=== PATIENT | female | born 1995 | race Two or more races ===

== ENCOUNTER 2022-07-11 04:14 | Emergency (ER) | payer OTHER ==
[~2022-07-11] VITALS: Ht 170.2 cm; Wt 66.7 kg
[2022-07-11] MEDS ORDERED: CELEBREX100 MG PO (05:39)
[2022-07-11] MEDS ORDERED: METAXALONE800 MG PO (05:39)
== END 2022-07-11 05:44 | disposition home or self-care (01) ==
LOC: ER 04:14
DX: R20.0 Anesthesia of skin (principal); M62.830 Muscle spasm of back; Z91.013 Allergy to seafood; Z91.018 Allergy to other foods

== ENCOUNTER 2023-11-23 09:53 | Emergency (ER) | payer OTHER ==
[~2023-11-23] VITALS: Ht 170.2 cm; Wt 64.9 kg
[~2023-11-23 09:53] MED LIST: CELEBREX100 MG PO; METAXALONE800 MG PO
[2023-11-23] MEDS ORDERED: LORATADINE10 MG PO (10:36)
[2023-11-23] MEDS ORDERED: BENZONATATE100 MG PO (10:36)
[2023-11-23] MEDS ORDERED: GUAIFEN/DEXTROMETHORPHAN/PE 10 ML BLIST.PACK PO ONE (11:00)
== END 2023-11-23 13:17 | disposition home or self-care (01) ==
LOC: ER 09:53
DX: J22 Unspecified acute lower respiratory infection (principal); Z20.822 Contact with and (suspected) exposure to COVID-19; Z91.013 Allergy to seafood; Z91.018 Allergy to other foods

== ENCOUNTER 2024-09-09 17:30 | Emergency (ER) | payer OTHER ==
[~2024-09-09] VITALS: Ht 170.2 cm; Wt 69.4 kg
[~2024-09-09 17:30] MED LIST changes: +BENZONATATE100 MG PO; +KETO10TA2 PO; +LORATADINE10 MG PO; +NORFLEX100MG PO; +TRI-SPRINTEC T1 EACH PO
[2024-09-09] MEDS ORDERED: TRISPRINTEC (18:34)
== END 2024-09-09 20:48 | disposition home or self-care (01) ==
LOC: ER 17:32
DX: L03.116 Cellulitis of left lower limb (principal); Z91.013 Allergy to seafood; Z91.018 Allergy to other foods